=== PATIENT | female | born 1965 | race Caucasian/White ===

== ENCOUNTER 2017-02-03 08:22 | Day surgery (SDC) | payer BC ==
[~2017-02-03 08:22] MED LIST: Lactated Ringers 1,000 ML IV SCH; Sodium Chloride 0.9% 10 ML Syringe FLUSH PRN; Sodium Chloride 0.9% 2.5 ML Syringe FLUSH PRN
--- NOTE | 2017-02-03 08:57 | PCM.PREANE ---
Preanesthetic Assessment - Anesthesia/Transfusion/Family Hx Other Type of Anesthesia Reaction Comment: went into A-fib after hyst, br augmentation & tummytuc, (all 1 surgery) Family History of Anesthesia Reaction: No Transfusion History: No Prior Transfusion(s) Intubation History: Unknown - Physical Assessment Height: 1.73 m Weight: 78.018 kg ASA Class: 2 Mental Status: Alert & Oriented x3 Airway Class: Mallampati = 2 Dentition: Reports: Normal Dentition Thyro-Mental Finger Breadths: 3 Mouth Opening Finger Breadths: 3 ROM/Head Extension: Full Lungs: Clear to auscultation, Normal respiratory effort Cardiovascular: Regular Rate, Regular Rhythm - Allergies Allergies/Adverse Reactions: Allergies Allergy/AdvReac Type Severity Reaction Status Date / Time adhesive tape Allergy Blisters Verified 02/01/17 08:03 - Blood Blood Available: No - Anesthesia Plan Pre-Op Medication Ordered: None - Acknowledgements Anesthesia Type Planned: MAC Pt an Appropriate Candidate for the Planned Anesthesia: Yes Alternatives and Risks of Anesthesia Discussed w Pt/Guardian: Yes Pt/Guardian Understands and Agrees with Anesthesia Plan: Yes PreAnesthesia Questionnaire Cardiovascular History: Reports: Other (See Below) Other Cardiovascular History: pt states she went into A-fib after having hysterectomy, breast augmentation and abdominoplasty and ended up in ICU. (all 3 surgeries were done at 1 time) Respiratory History: Reports: Other (See Below) Other Respiratory History: nodule on lung Gastrointestinal History: Reports: GERD, Other (See Below) Other Gastrointestinal History: pt states she tested positive for hep B, but has no antibodies (has had hep B vaccine) Genitourinary History: Reports: None BRAN MIXER History: Reports: Musculoskeletal History: Reports: Arthritis, Back Pain, Chronic Neurological History: Reports: Migraines Dermatologic History: Reports: Psoriasis - Past Surgical History Head Surgeries/Procedures: Reports: None GI Surgical History: Reports: Appendectomy, Cholecystectomy Female Surgical History: Reports: Hysterectomy Other Female Surgeries/Procedures: breast augmentation and abdominoplasty - SUBSTANCE USE Smoking Status *Q: Former Smoker (smoked lightly for 4 years, quit in november) Tobacco Use Within Last Twelve Months: No Recreational Drug Use History: No - HOME MEDS Home Medications: Home Meds Aspirin/Acetaminophen/Caffeine [Migraine Formula Caplet] 1 tab PO ASDIRECTED PRN 02/01/17 [History] Betamethasone Dipropionate [Diprosone 0.05% Crm] 1 applic TOP ASDIRECTED PRN [History] Pantoprazole Sodium 40 mg PO DAILY 02/01/17 [History] Rizatriptan Benzoate [Maxalt] 10 mg PO ASDIRECTED PRN 02/01/17 [History] Topiramate 100 mg PO BID 02/01/17 [History] ZOLMitriptan [Zolmitriptan] 2.5 mg PO ASDIRECTED PRN 02/01/17 [History] - CURRENT (IN HOUSE) MEDS Current Meds: Current Medications Lactated Ringer's (Ringers, Lactated) 1,000 mls @ 125 mls/hr IV ASDIRECTED TRINH Last Admin: 02/03/17 08:45 Dose: 125 mls/hr Sodium Chloride (Saline Flush) 10 ml FLUSH ASDIRECTED PRN PRN Reason: Keep Vein Open Sodium Chloride (Saline Flush) 2.5 ml FLUSH ASDIRECTED PRN PRN Reason: Keep Vein Open
[2017-02-03] MEDS ORDERED: fentaNYL 100 MCG/2 ML SDV ONE (09:54)
[2017-02-03] MEDS ORDERED: Midazolam 1 MG/ML 2 ML SDV ONE (09:54)
[2017-02-03] MEDS ORDERED: Lidocaine 2% 5 ML SDV ONE (09:54)
[2017-02-03] MEDS ORDERED: Propofol 200 MG/20 ML SDV ONE (09:54)
--- NOTE | 2017-02-03 10:41 | PCM.OPNOTE ---
- General Post-Op/Procedure Note Date of Surgery/Procedure: 02/03/17 Operative Procedure(s): EGD and colonoscopy Findings: Gastritis, duodenitis, rectal polyp X 3 Pre Op Diagnosis: Change in bowel habits, epigastric pain Post-Op Diagnosis: same Anesthesia Technique: MAC Primary Surgeon: Lata Mahoney Condition: Good
--- NOTE | 2017-02-03 10:51 | PCM.POSTAN ---
POST ANESTHESIA ASSESSMENT - MENTAL STATUS Mental Status: alert, oriented - RESPIRATORY Respiratory Status: respiratory rate WNL, airway patent, O2 saturation stable - CARDIOVASCULAR CV Status: pulse rate WNL, blood pressure stable - GASTROINTESTINAL GI Status: no symptoms - POST OP HYDRATION Hydration Status: adequate & stable - OBSERVATIONS Free Text/Narrative:: no anesthesia problems
[2017-02-03 11:30] VITALS: BP 113/60
--- NOTE | 2017-02-04 03:51 | OR ---
SURGEON: SHAUNA KENDALL MD DATE OF PROCEDURE: 02/03/2017 PREOPERATIVE DIAGNOSIS: Epigastric pain, change in bowel habits. POSTOPERATIVE DIAGNOSIS: Gastritis, duodenitis, rectal polyp x3. PROCEDURE PERFORMED: Diagnostic EGD and colonoscopy. INSTRUMENT USED: Olympus endoscope and colonoscope. ANESTHESIA: MAC. EXTENT OF EXAM: To the cecum, to the second portion of duodenum. PREPARATION: Good. LIMITATIONS: None. INDICATIONS FOR EXAMINATION: The patient is a 51-year-old, otherwise healthy female, who presents with a change in her eating and bowel habits. Associated with this is epigastric pain. A decision was made to perform a diagnostic EGD and colonoscopy. We discussed the procedures as well as the risks including bleeding, infection, or damage to surrounding structures, including perforation. The patient verbalized understanding and wished to proceed. PROCEDURE IN DETAIL: The patient was brought to the endoscopy suite and placed in a beach chair position. A time-out was completed verifying the patient's name, age, date of , allergies, and procedure to be performed. A bite block was placed in the patient's mouth and monitored anesthesia care induced. Continuous oxygen was provided via nasal cannula throughout the procedure. After adequate sedation was achieved, a well lubricated endoscope was placed in the patient's mouth and advanced under direct visualization to the second portion of duodenum. This was normal and a photograph was taken. The scope was then pulled back. The patient had mild inflammatory changes within the duodenal bulb. The scope was brought into the stomach. The gastric mucosa appeared inflamed. Biopsies were taken of the gastric antrum, body, and fundus and sent for pathology and H. pylori testing. Photographs were taken of the pylorus as well as the esophageal hiatus and these appeared normal. The scope was brought into the esophagus and a photograph was taken of the GE junction. That as well the remainder of the esophageal mucosa appeared normal. The scope was removed from the patient. This portion of procedure terminated. The patient was placed in left lateral decubitus position. A digital rectal exam was performed. This examination was within normal limits. A well lubricated colonoscope was inserted in the rectum and advanced under direct visualization to the level of cecum. The cecum was identified by both visual and anatomic landmarks. A photograph was taken of the cecal cap as well as with the scope retroflexed within the cecum. The scope was then straightened out and fully withdrawn while examining the color, texture, anatomy, and integrity of the mucosa from the cecum to the anal canal. Three 2- 3 mm sessile polyps were noted within the rectum. These were removed with the cold biopsy forceps. The scope was retroflexed within the rectum to allow visualization of the anal canal opening. This appeared normal and a photograph was taken. The scope was straightened out and removed from the patient. The cecum to anus time was 10 minutes. The patient was transferred to the recovery room in stable condition. ENDOSCOPIC DIAGNOSIS: Gastritis, duodenitis, and rectal polyps x3. RECOMMENDATIONS: Follow up in clinic in 2 weeks. Continue on pantoprazole for now. We will add Carafate and fiber supplementation. AARON CONROY /[id number]
== END 2017-02-03 11:28 | disposition home or self-care (01) ==
LOC: MW.SDS 08:22
PROVIDERS: ATTEND Surgery
PROC: 0DB68ZX Excision of Stomach, Via Natural or Artificial Opening Endoscopic, Diagnostic (ICD-10-PCS; principal; 2017-02-03)
PROC: 0DBP8ZZ Excision of Rectum, Via Natural or Artificial Opening Endoscopic (ICD-10-PCS; 2017-02-03)
DX: K62.1 Rectal polyp (principal); I48.91 Unspecified atrial fibrillation; K21.9 Gastro-esophageal reflux disease without esophagitis; M19.90 Unspecified osteoarthritis, unspecified site; G89.29 Other chronic pain; M54.9 Dorsalgia, unspecified; Z87.891 Personal history of nicotine dependence; Z79.82 Long term (current) use of aspirin; Z79.899 Other long term (current) drug therapy; Z91.048 Other nonmedicinal substance allergy status; Z98.890 Other specified postprocedural states; Z90.49 Acquired absence of other specified parts of digestive tract; Z90.710 Acquired absence of both cervix and uterus
CPT/HCPCS: 43239; 45380; 88305; 88312; J2250; J3010; J7120; 00740; J2704